=== PATIENT | male | born 1950 | race Caucasian/White ===

== ENCOUNTER 2022-05-22 11:02 | Outpatient (CLI) | payer MEDICARE, OTHER, SELFPAY ==
[2022-05-22 12:55] LABS: PSA Screen* 5.05 ng/mL (0.10-4.00)
== END 2022-05-22 11:03 | disposition home or self-care (01) ==
LOC: NFLDREF 11:03
PROVIDERS: PCP Internal Medicine; Visit Provider Internal Medicine
DX: R97.20 Elevated prostate specific antigen [PSA]; Z12.5 Encounter for screening for malignant neoplasm of prostate
CPT/HCPCS: 84153

== ENCOUNTER 2023-06-18 11:11 | Outpatient (CLI) | payer MEDICARE, OTHER, SELFPAY | END 2023-06-18 11:12 | disposition home or self-care (01) | LOC: NFLDREF 06-19 06:07 | PROVIDERS: PCP Internal Medicine; Referring Provider Internal Medicine; Visit Provider Internal Medicine | DX: R97.20 Elevated prostate specific antigen [PSA] (principal) | CPT/HCPCS: G0103 ==

== ENCOUNTER 2023-10-16 08:23 | Outpatient (CLI) | payer MEDICARE, OTHER, SELFPAY | END 2023-10-16 08:24 | disposition home or self-care (01) | LOC: NFLDREF 10-30 09:36 | PROVIDERS: PCP Internal Medicine; Referring Provider Internal Medicine; Visit Provider Internal Medicine | DX: R97.20 Elevated prostate specific antigen [PSA] (principal) | CPT/HCPCS: 84153 ==

== ENCOUNTER 2024-05-15 08:10 | Outpatient (CLI) | payer MEDICARE, OTHER, SELFPAY | END 2024-05-15 08:11 | disposition home or self-care (01) | LOC: NFLDREF 05-23 16:22 | PROVIDERS: PCP Internal Medicine; Referring Provider Internal Medicine; Visit Provider Internal Medicine | DX: R97.20 Elevated prostate specific antigen [PSA] (principal) | CPT/HCPCS: 84153 ==

== ENCOUNTER 2024-07-06 07:45 | Outpatient (CLI) | payer MEDICARE, OTHER, SELFPAY ==
--- NOTE | 2024-07-06 09:05 | W.ANESCHARGE ---
Anesthesia Charges Start Date/Time Anesthesia Start Date: 07/06/24 Anesthesia Start Time: 08:33 Stop Date/Time Anesthesia Stop Date: 07/06/24 Anesthesia Stop Time: 09:03 Summary Extremes of Age - Over 70 or under 1: POOLROOM/POOLHALL MANAGER Coding CPT Codes CPT Codes: ANEBlanca LWR INTST SCR COLSC - 90757 ([id number]) P2 - PATIENT W/MILD SYST DISEASE, QK - CAN TECHNICIAN 2-4 CNCRNT ANES PROC, QX - POOLROOM/POOLHALL MANAGER SVC W/ MD MED DIRECTION Additional Codes: Summary - Extremes of Age - Over 70 or under 1: POOLROOM/POOLHALL MANAGER ([id number])
--- NOTE | 2024-07-06 09:05 | W.ANESCHARGE ---
Anesthesia Charges Start Date/Time Anesthesia Start Date: 07/06/24 Anesthesia Start Time: 08:33 Stop Date/Time Anesthesia Stop Date: 07/06/24 Anesthesia Stop Time: 09:03 Summary Extremes of Age - Over 70 or under 1: MDA Coding CPT Codes CPT Codes: ANES LWR INTST SCR COLSC - 97932 ([id number]) P2 - PATIENT W/MILD SYST DISEASE, QK - MANAGER OF FINANCIAL PLANNING 2-4 CNCRNT ANES PROC, QX - ANODE ADJUSTER SVC W/ MD MED DIRECTION Additional Codes: Summary - Extremes of Age - Over 70 or under 1: MDA ([id number])
== END 2024-07-06 07:46 | disposition home or self-care (01) ==
LOC: OP CLINIC 07:45
PROVIDERS: PCP Internal Medicine; Visit Provider Internal Medicine
DX: Z12.11 Encounter for screening for malignant neoplasm of colon (principal); K57.30 Diverticulosis of large intestine without perforation or abscess without bleeding; Z86.0100 Personal history of colon polyps, unspecified
CPT/HCPCS: 00812; 45378; 99100; J2704

== ENCOUNTER 2024-12-14 10:40 | Outpatient (CLI) | payer MEDICARE, OTHER, SELFPAY | END 2024-12-14 10:41 | disposition home or self-care (01) | LOC: NFLDREF 12-17 12:29 | PROVIDERS: PCP Internal Medicine; Referring Provider Internal Medicine; Visit Provider Internal Medicine | DX: R97.20 Elevated prostate specific antigen [PSA] (principal) | CPT/HCPCS: 84153 ==